=== PATIENT | male | born 1995 | race African-American/Black ===

== ENCOUNTER 2022-12-29 17:13 | Emergency (ER) | payer MEDICAID ==
[~2022-12-29] VITALS: Ht 188 cm; Wt 110.0 kg
[2022-12-29 17:40] VITALS: BP 142/90
[2022-12-29] MEDS ORDERED: IBUPROFEN 400MG TABLET PO ONE (22:00)
[2022-12-29] MEDS ORDERED: IBUP-2028 MT (23:09)
[2022-12-29] MEDS ORDERED: SULF15DR26 EACHEYE (23:10)
== END 2022-12-29 23:24 | disposition home or self-care (01) ==
LOC: ER 17:13
DX: J02.9 Acute pharyngitis, unspecified (principal); H10.9 Unspecified conjunctivitis
CPT/HCPCS: 87070; 87430; 99283; Z7610